=== PATIENT | male | born 1955 | race Caucasian/White ===

== ENCOUNTER 2023-06-19 14:02 | Emergency (ER) | payer MEDICARE, OTHER, SELFPAY ==
[2023-06-19 14:08] VITALS: BP 112/68
--- NOTE | 2023-06-19 14:55 | ED.SKININJ ---
HPI-Injury
General
Chief Complaint: Skin Surface Trauma
Source: patient
Exam Limitations: none
Time Seen by Provider: 06/19/23 14:33
Travel History
Have you had any contact with someone who has COVID-19?: No
Do you have any symptoms of coronavirus? Fever > 100 degrees, chills, cough, shortness of breath, sore throat, loss of taste or smell, muscle aches, or headache?: No
History of Present Illness-Injury
Initial Injury comments:
67-year-old male [id number] presents with laceration to left wrist he sustained today. He was opening a zip tie with a knife and slipped and cut his wrist. Last tetanus unknown. He denies numbness or tingling or loss of function. No
other complaints at this time
Past History
Past History
ED Past Medical History: Cancer (Oral/lung mets)
ED Past Surgical History: Other (Robotic lobectomy. Port.)
Social History
Tobacco: Non-smoker
Personal:
Living: with family
Phy Exam
Physical Exam
Physical Exam:
General: Well-appearing male no acute respiratory distress skin:
2.5 cm laceration radial aspect distal left wrist. There is no tendon involvement. There is no vascular involvement. There is a 2+ radial pulse left wrist with brisk capillary refill to the fingers
Musculoskeletal exam: Full range of motion left thumb and wrist
Neurologic: Good sensation left hand
Course
Orders/Labs/Results
Orders:
Orders
06/19/23 14:55
Tetanus/Diphth/Acelpertussis [Adacel] 0.5 ml IM .ONCE ONE
Vital Signs
Initial and Last Documented VS:
Initial Vital Signs
Temp Pulse Resp BP Pulse Ox
98.7 F 90 18 112/68 92
06/19/23 14:08 06/19/23 14:08 06/19/23 14:08 06/19/23 14:08 06/19/23 14:08
Last Documented Vital Signs
Temp Pulse Resp BP Pulse Ox
98.7 F 90 18 112/68 92
06/19/23 14:08 06/19/23 14:08 06/19/23 14:08 06/19/23 14:08 06/19/23 14:08
Procedures
Laceration Closure
Left Radial Wrist:
Status of Wound: clean
Description of Wound Edges: sharp
Preparation: cleaned with saline
Anesthesia: 1% Lidocaine
Revision/Debridement: routine- no revision
Wound exploration: explored to base- no FB and no tendon involvement
Type of Closure: single layer closure and interrupted sutures
Skin Closure Material: 5-0 prolene
Number of sutures: 5
MDM/Problems Addressed
Differential Diagnosis Includes:
Laceration left wrist without tendon or vascular involvement. This was copiously irrigated with saline and closed with 5-0 Prolene sutures. Tetanus vaccine updated. Dressing was applied. Discharged home with wound care instructions
*Critical Care Note
Total Time (30-74mins, 75-104mins- exclusive of procedures): Not Applicable
ED Attending Note
-
Portions of this chart may have been created with voice recognition software.� Occasional wrong word or��sound alike� substitutions may have occurred due to the inherent limitations of voice recognition software.
Discharge Plan
Departure
Patient Disposition: Home (Routine Discharge)
Date of Disposition: 06/19/23
Time of Disposition: 14:57
Patient with high blood pressure during this ER visit?: No
Discharge Problem:
Laceration
Instructions: Laceration Repair With Stitches (DC)
Prescriptions:
No Action
fluconazole 100 mg Tablet
100 mg PO DAILY
loperamide 2 mg Capsule
2 mg PO Q4H
ondansetron HCl 8 mg Tablet
8 mg PO Q8H PRN (Reason: nausea/vomiting)
levothyroxine 100 mcg Tablet
100 mcg PO DAILY
metoclopramide HCl 10 mg Tablet
10 mg PO ACHS
sucralfate 100 mg/mL Suspension
1 gm PO BID Qty: 600 0RF
pantoprazole [Protonix] 40 mg tablet,delayed release (DR/EC)
40 mg PO DAILY Qty: 30 0RF
Activity Restrictions/Additional Instructions:
Keep clean. Have sutures removed in 10 to 12 days. Return if needed otherwise follow-up with family doctor
Interventions
Interventions:
ED-Skin Assessment Last Done: 06/19/23 14:41
[2023-06-19] MEDS: ADACEL 0.5 ML IM (15:03)
[2023-06-19 15:22] VITALS: BP 109/63
[2023-06-19 15:25] VITALS: BP 109/63
== END 2023-06-19 15:25 | disposition home or self-care (01) ==
LOC: EMR 14:02
PROVIDERS: EMERGENCY PHYSICIAN Emergency Medicine; FAMILY PHYSICIAN Family Medicine
DX: S61.512A Laceration without foreign body of left wrist, initial encounter (principal); W45.8XXA Other foreign body or object entering through skin, initial encounter
CPT/HCPCS: 99282; 12001; 90471; 90715

== ENCOUNTER → 2023-07-22 11:20 | Outpatient (REF) | payer MEDICARE, OTHER, SELFPAY | LOC: RAD 11:20 | PROVIDERS: ATTENDING PHYSICIAN Nurse Practitioner Primary Care | DX: C01 Malignant neoplasm of base of tongue (principal) | CPT/HCPCS: 71046 ==

== ENCOUNTER 2023-11-13 06:46 | Day surgery (SDC) | payer MEDICARE, OTHER, SELFPAY ==
[2023-11-13] VITALS (8 sets, daily range): BP systolic 91–110; BP diastolic 59–73; BMI 22.5
[2023-11-13 17:10] LABS: Brochalveolar Lavage Character Hazy (Clear); Brochalveolar Lavage Color Pink; Brochalveolar Lavage Volume 17.5 ml; Brochalveolar Lavage WBC 47300 cells/ml
[2023-11-13 17:59] LABS: BAL Eosinophils 1 %; BAL Lymphocytes 4 %; BAL Macrophages 14 %; BAL Neutrophils 81 %
== END 2023-11-13 15:30 | disposition home or self-care (01) ==
LOC: GI 06:46
PROVIDERS: ATTENDING PHYSICIAN Internal Medicine Critical Care Medicine
DX: J84.9 Interstitial pulmonary disease, unspecified (principal); J13 Pneumonia due to Streptococcus pneumoniae
CPT/HCPCS: 31623; 31624; 87015; 87070; 87071; 87102; 87116; 87186; 87205; 88112; 89051

== ENCOUNTER → 2023-11-25 09:45 | Outpatient (REF) | payer MEDICARE, OTHER, SELFPAY | LOC: RST 09:45 | PROVIDERS: ATTENDING PHYSICIAN Internal Medicine Critical Care Medicine; FAMILY PHYSICIAN Family Medicine | DX: Z87.01 Personal history of pneumonia (recurrent) (principal); R13.10 Dysphagia, unspecified | CPT/HCPCS: 74230; 92611 ==

== ENCOUNTER 2023-12-31 10:12 | Outpatient (RCR) | payer MEDICARE, OTHER, SELFPAY | END 2023-12-31 23:59 | disposition home or self-care (01) | LOC: RST 10:12 | PROVIDERS: ATTENDING PHYSICIAN Family Medicine | DX: R13.12 Dysphagia, oropharyngeal phase (principal); Z87.01 Personal history of pneumonia (recurrent); Z85.810 Personal history of malignant neoplasm of tongue; C78.00 Secondary malignant neoplasm of unspecified lung | CPT/HCPCS: 92526; 92610 ==

== ENCOUNTER 2024-02-03 10:08 | Outpatient (RCR) | payer MEDICARE, OTHER, SELFPAY | END 2024-02-03 23:59 | disposition home or self-care (01) | LOC: RST 10:08 | PROVIDERS: ATTENDING PHYSICIAN Family Medicine | DX: R13.12 Dysphagia, oropharyngeal phase (principal); Z85.810 Personal history of malignant neoplasm of tongue; Z85.118 Personal history of other malignant neoplasm of bronchus and lung; Z87.01 Personal history of pneumonia (recurrent) | CPT/HCPCS: 92526 ==

== ENCOUNTER 2024-02-12 11:10 | Emergency (ER) | payer MEDICARE, OTHER, SELFPAY ==
[2024-02-12 11:12] VITALS: BP 111/75
--- NOTE | 2024-02-12 11:48 | ED.GENMED ---
History of Present Illness
General
Chief Complaint: Abnormal Lab Value
Time Seen by Provider: 02/12/24 11:27
History of Present Illness
History of Present Illness:
Patient is a 68-year-old male with history of cancer currently not on chemotherapy presenting to the emergency department with abnormal blood work. 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
And then spread to his chest in 2020 when he was on chemo. In October he had a PET scan that showed his cancer was in remission. His chemotherapy was stopped. It did show concerning signs for fungal pneumonia and he was seen by pulmonology and
treated. He did have routine blood work completed his primary care doctor and was called today for white count of 96. His primary care doctor told him to come to the emergency department for further evaluation. Patient states that this time he
has no medical complaints. He did have an episode of dizziness a few weeks ago and his primary care doctor did order an echo and ultrasound of his carotids. He states that he did feel dehydrated that day and has not had it again since then.
Past History
Past History
ED Past Medical History: Cancer (Oral/lung mets)
ED Past Surgical History: Other (Robotic lobectomy. Port.)
Social History
Tobacco: Non-smoker
Personal:
Living: with family
Phy Exam
Physical Exam
Physical Exam:
GENERAL: in no acute distress
HEENT: normocephalic, extraocular movements intact, moist oral mucosa
NECK: normal inspection
RESPIRATORY: no respiratory distress, clear to auscultation bilaterally
CARDIOVASCULAR: regular rate and rhythm
ABDOMEN/: soft, non-distended, non-tender to palpation, no rebound or guarding
EXTREMITIES: non-tender, no edema/swelling
NEUROLOGIC: awake and alert, moves all extremities
SKIN: warm
Course
Orders/Labs/Results
Orders:
Orders
02/12/24 12:04
Complete Blood Count/With Diff Urgent
Comprehensive Metabolic Panel Urgent
Manual Differential Urgent
Abnormal Lab Results
02/12/24
12:04
WBC 99.6 H* 10^3/uL
(4.8-10.8)
MCH 26.9 L pg
(27.0-31.0)
MCHC 32.8 L g/dL
(33.0-37.0)
RDW 18.3 H %
(11.5-14.5)
Plt Count 435 H 10^3/uL
(130-400)
02/12/24 12:04
02/12/24 12:04
Vital Signs
Initial and Last Documented VS:
Initial Vital Signs
Temp Pulse Resp BP Pulse Ox
98.3 F 110 16 111/75 98
02/12/24 11:12 02/12/24 11:12 02/12/24 11:12 02/12/24 11:12 02/12/24 11:12
Last Documented Vital Signs
Temp Pulse Resp BP Pulse Ox
98.3 F 110 16 111/75 98
02/12/24 11:12 02/12/24 11:12 02/12/24 11:12 02/12/24 11:12 02/12/24 11:12
MDM/Problems Addressed
Differential Diagnosis Includes:
Patient is a 68-year-old male with history of cancer that is currently in remission presenting to the emergency department with abnormal white count on outpatient blood work. Vitals are unremarkable exam is reassuring. Patient has no medical
complaints at this time. He does not appear to be septic or any signs of infection. He has been afebrile and denies any signs or symptoms to suggest an underlying infection. I did discuss with Dr. Ivey from oncology who recommended repeating
blood work and likely outpatient follow-up. I did discuss the possibility of hyperviscosity syndrome with the episode of dizziness last week with Dr. Ivey however at this time unlikely given that he has been asymptomatic and only occurred once
when he did feel dehydrated.
*Critical Care Note
Total Time (30-74mins, 75-104mins- exclusive of procedures): Not Applicable
Update Note
Update Note:
On reevaluation patient resting comfortably. He remains asymptomatic. I did receive a critical about patient's WBC of 99.6. Differential pending. Given the patient is is overall well-appearing and will follow-up with Dr. Ivey patient can be
discharged with differential pending. Strict return precaution given.
ED Attending Note
-
Portions of this chart may have been created with voice recognition software.� Occasional wrong word or��sound alike� substitutions may have occurred due to the inherent limitations of voice recognition software.
Discharge Plan
Departure
Discharge Problem:
Leukocytosis
Instructions: Complete blood count (CBC)
Prescriptions:
No Action
levothyroxine 100 mcg Tablet
125 mcg PO DAILY
capecitabine [Xeloda] 500 mg Tablet
500 mg PO BID
albuterol 90 mcg/actuation Aerosol
90 mcg INHALATION .Q4H PRN (Reason: cough)
Referrals:
Juan David Bennett, [Family Provider] -
Polo Ivey MD [Active] -
Activity Restrictions/Additional Instructions:
You were seen in the Emergency Department today. You are found to have a high white count. Please call your oncologist to schedule an outpatient appointment.
We would like for you to follow up with your primary care physician for further evaluation. If you experience fever, worsening of your symptoms, or develop any other new or concerning symptoms, please return to the Emergency Department immediately.
Please see the attached sheet for additional information.
Interventions
Interventions:
*Risk Screen - Suicide Last Done: 02/12/24 11:12
*Neglect/Abuse Screening Last Done: 02/12/24 11:12
Discharge Date and Time
Print Language: PERUVIAN
[2024-02-12 12:14] LABS: Hematocrit 40.3 % (39.0-52.0); Hemoglobin 13.2 g/dL (13.0-18.0); Mean Corp Hgb Conc. 32.8 g/dL (33.0-37.0); Mean Corpuscular Hgb 26.9 pg (27.0-31.0); Mean Corpuscular Volume 82.2 fL (80.0-94.0); Mean Platelet Volume 9.6 fL (7.4-10.4); Platelet Count 435 10^3/uL (130-400); Red Cell Dist. Width 18.3 % (11.5-14.5); White Blood Cell Count 99.6 10^3/uL (4.8-10.8)
[2024-02-12 12:24] LABS: ALT (SGPT) 30 U/L (0-50); AST (SGOT) 36 U/L (17-59); Albumin 4.2 g/dl (3.5-5.0); Alkaline Phosphatase 85 U/L (38-126); Blood Urea Nitrogen 12 mg/dl (9-20); Calcium 9.4 mg/dl (8.4-10.2); Carbon Dioxide 26 mmol/L (22-30); Chloride 100 mmol/L (98-107); Glucose 96 mg/dl (70-99); Potassium 4.4 mmol/L (3.5-5.1); Sodium 136 mmol/L (135-145); Total Bilirubin 0.7 mg/dl (0.2-1.3); Total Protein 7.2 g/dl (6.3-8.2); eGFR > 60.00
[2024-02-12 12:57] LABS: Absolute Neutrophils -Man Diff 72.7 10^3/uL (1.4-6.5); Band Neutrophils 10 % (0-3); Eosinophils 1 % (0-6); Lymphocytes 2 % (20-51); Metamyelocytes 14 % (-); Monocytes 4 % (2-9); Myelocytes 5 % (-); Normal RBC Morphology Yes; Platelets Checked Yes; Segmented Neutrophils 63 % (42-75); Total Cells Counted 100
[2024-02-12 13:00] VITALS: BP 112/74
== END 2024-02-12 13:00 | disposition home or self-care (01) ==
LOC: EMR 11:10
PROVIDERS: EMERGENCY PHYSICIAN Student in an Organized Health Care Education/Training Program; FAMILY PHYSICIAN Family Medicine
DX: D72.829 Elevated white blood cell count, unspecified (principal); Z85.118 Personal history of other malignant neoplasm of bronchus and lung; Z85.89 Personal history of malignant neoplasm of other organs and systems; Z90.2 Acquired absence of lung [part of]
CPT/HCPCS: 99283; 80053; 85025

== ENCOUNTER → 2024-02-19 11:41 | Outpatient (REF) | payer MEDICARE, OTHER, SELFPAY ==
[2024-02-19 13:29] LABS: Hemoglobin 13.7 g/dL (13.0-18.0); Mean Corp Hgb Conc. 31.9 g/dL (33.0-37.0); Mean Corpuscular Hgb 26.7 pg (27.0-31.0); Mean Corpuscular Volume 83.8 fL (80.0-94.0); Mean Platelet Volume 9.3 fL (7.4-10.4); Platelet Count 436 10^3/uL (130-400); Red Blood Cell Count 5.13 10^6/uL (4.70-6.10); Red Cell Dist. Width 18.1 % (11.5-14.5); White Blood Cell Count 103.4 10^3/uL (4.8-10.8)
[2024-02-19 13:52] LABS: Absolute Neutrophils -Man Diff 69.2 10^3/uL (1.4-6.5); Band Neutrophils 8 % (0-3); Lymphocytes 4 % (20-51); Monocytes 4 % (2-9); Segmented Neutrophils 59 % (42-75)
[2024-02-19 13:53] LABS: Metamyelocytes 10 % (-); Myelocytes 15 % (-); Normal RBC Morphology Yes; Platelets Checked Yes; Total Cells Counted 100
[2024-02-19 14:14] LABS: ALT (SGPT) 27 U/L (0-50); AST (SGOT) 38 U/L (17-59); Albumin 4.4 g/dl (3.5-5.0); Alkaline Phosphatase 85 U/L (38-126); Blood Urea Nitrogen 14 mg/dl (9-20); Carbon Dioxide 28 mmol/L (22-30); Chloride 100 mmol/L (98-107); Glucose 68 mg/dl (70-99); Phosphorus 3.6 mg/dl (2.5-4.5); Potassium 4.8 mmol/L (3.5-5.1); Sodium 140 mmol/L (135-145); Total Bilirubin 0.7 mg/dl (0.2-1.3); Total Protein 7.6 g/dl (6.3-8.2); eGFR > 60.00
[2024-02-19 14:30] LABS: LDH 615 U/L (120-246)
[2024-02-19 14:47] LABS: Uric Acid 8.4 mg/dl (3.5-8.5)
== END ==
LOC: REG 11:41
PROVIDERS: ATTENDING PHYSICIAN Internal Medicine Hematology & Oncology; FAMILY PHYSICIAN Family Medicine
DX: C01 Malignant neoplasm of base of tongue (principal); G64 Other disorders of peripheral nervous system; R05.3 Chronic cough
CPT/HCPCS: 36415; 80053; 83615; 84100; 84550; 85025

== ENCOUNTER → 2024-02-28 08:28 | Outpatient (REF) | payer MEDICARE, OTHER, SELFPAY | LOC: MRI 3T 08:28 | PROVIDERS: ATTENDING PHYSICIAN Family Medicine | DX: C09.9 Malignant neoplasm of tonsil, unspecified (principal); R42 Dizziness and giddiness; R53.83 Other fatigue | CPT/HCPCS: 70030; 70553; A9575 ==

== ENCOUNTER → 2024-03-02 12:44 | Outpatient (REF) | payer MEDICARE, OTHER, SELFPAY | LOC: HWRCS 12:44 | PROVIDERS: ATTENDING PHYSICIAN Family Medicine | DX: R01.1 Cardiac murmur, unspecified (principal) | CPT/HCPCS: 93306 ==

== ENCOUNTER → 2024-03-03 07:03 | Outpatient (REF) | payer MEDICARE, OTHER, SELFPAY ==
[2024-03-03] VITALS (8 sets, daily range): BP systolic 71–116; BP diastolic 65–79
[2024-03-03 07:35] LABS: Hematocrit 45.4 % (39.0-52.0); Mean Corp Hgb Conc. 30.8 g/dL (33.0-37.0); Mean Corpuscular Hgb 27.2 pg (27.0-31.0); Mean Corpuscular Volume 88.3 fL (80.0-94.0); Mean Platelet Volume 9.4 fL (7.4-10.4); Platelet Count 517 10^3/uL (130-400); Red Blood Cell Count 5.14 10^6/uL (4.70-6.10); Red Cell Dist. Width 18.2 % (11.5-14.5)
[2024-03-03 07:37] LABS: White Blood Cell Count 120.3 10^3/uL (4.8-10.8)
[2024-03-03 07:54] LABS: PT 14.5 Sec (11.4-14.6)
[2024-03-03] MEDS: ATIVAN 0.5 MG IV (08:06)
[2024-03-03] MEDS: FLUSH (NSS) 1 FLUSH IV (08:07)
[2024-03-03] MEDS: NSS (PRESERVATIVE FREE) 0.25 ML IV (08:07)
[2024-03-03 08:09] LABS: Absolute Neutrophils -Man Diff 75.7 10^3/uL (1.4-6.5); Band Neutrophils 15 % (0-3); Lymphocytes 10 % (20-51); Metamyelocytes 2 % (-); Monocytes 5 % (2-9); Myelocytes 19 % (-); Normal RBC Morphology Yes; Nucleated Red Blood Cells 1 (-); Platelets Checked Yes; Segmented Neutrophils 48 % (42-75); Total Cells Counted 100
== END ==
LOC: RADI 07:03
PROVIDERS: ATTENDING PHYSICIAN Internal Medicine Hematology & Oncology
DX: D72.829 Elevated white blood cell count, unspecified (principal); D68.8 Other specified coagulation defects
CPT/HCPCS: 88305; 88311; 88312; 36415; 38222; 77012; 85025; 85610; 88313

== ENCOUNTER → 2024-03-07 07:25 | Outpatient (REF) | payer MEDICARE, OTHER, SELFPAY | LOC: RAD 07:25 | PROVIDERS: ATTENDING PHYSICIAN Family Medicine; OTHER PHYSICIAN Internal Medicine Critical Care Medicine; REFERRING PHYSICIAN Internal Medicine Hematology & Oncology | DX: C09.9 Malignant neoplasm of tonsil, unspecified (principal); R42 Dizziness and giddiness; R01.1 Cardiac murmur, unspecified; R09.89 Other specified symptoms and signs involving the circulatory and respiratory systems | CPT/HCPCS: 93880 ==

== ENCOUNTER → 2024-04-03 16:03 | Outpatient (REF) | payer MEDICARE, OTHER, SELFPAY | LOC: RAD 16:03 | PROVIDERS: ATTENDING PHYSICIAN Family Medicine; FAMILY PHYSICIAN Internal Medicine Critical Care Medicine | DX: R05.3 Chronic cough (principal); R06.02 Shortness of breath | CPT/HCPCS: 71046 ==

== ENCOUNTER → 2024-04-27 10:03 | Outpatient (REF) | payer MEDICARE, OTHER, SELFPAY ==
[2024-04-27 11:02] LABS: % Basophils 0.4 % (0-2); % Eosinophils 0.6 % (0-6); % Immature Granulocytes 0.8 % (0-0.5); % Lymphocytes 20.8 % (20.5-51.1); % Monocytes 6.8 % (1.7-9.3); % Neutrophils 70.6 % (42.2-75.2); Absolute Lymphocytes 1.1 10^3/uL (1.2-3.4); Absolute Monocytes 0.4 10^3/uL (0.1-0.6); Absolute Neutrophils 3.7 10^3/uL (1.4-6.5); Hematocrit 42.9 % (39.0-52.0); Hemoglobin 13.6 g/dL (13.0-18.0); Mean Corp Hgb Conc. 31.7 g/dL (33.0-37.0); Mean Corpuscular Volume 88.5 fL (80.0-94.0); Nucleated Red Blood Cells % 0 % (-); Red Blood Cell Count 4.85 10^6/uL (4.70-6.10); Red Cell Dist. Width 18.4 % (11.5-14.5); White Blood Cell Count 5.3 10^3/uL (4.8-10.8)
[2024-04-27 11:28] LABS: ALT (SGPT) 36 U/L (0-50); AST (SGOT) 27 U/L (17-59); Alkaline Phosphatase 87 U/L (38-126); Blood Urea Nitrogen 13 mg/dl (9-20); Calcium 9.1 mg/dl (8.4-10.2); Carbon Dioxide 29 mmol/L (22-30); Chloride 100 mmol/L (98-107); Glucose 111 mg/dl (70-99); Mean Platelet Volume 9.2 fL (7.4-10.4); Platelet Count 70 10^3/uL (130-400); Sodium 136 mmol/L (135-145); Total Bilirubin 0.8 mg/dl (0.2-1.3); eGFR > 60.00
== END ==
LOC: REG 10:03
PROVIDERS: ATTENDING PHYSICIAN Internal Medicine Hematology & Oncology; FAMILY PHYSICIAN Family Medicine
DX: C01 Malignant neoplasm of base of tongue (principal); G64 Other disorders of peripheral nervous system; R05.3 Chronic cough; D72.829 Elevated white blood cell count, unspecified; C92.10 Chronic myeloid leukemia, BCR/ABL-positive, not having achieved remission
CPT/HCPCS: 36415; 80053; 85025

== ENCOUNTER → 2024-05-14 12:11 | Outpatient (REF) | payer MEDICARE, OTHER, SELFPAY | LOC: HWRAD 12:11 | PROVIDERS: ATTENDING PHYSICIAN Nurse Practitioner Family | DX: R05.9 Cough, unspecified (principal); J98.4 Other disorders of lung | CPT/HCPCS: 71250 ==

== ENCOUNTER → 2024-05-18 07:08 | Outpatient (REF) | payer MEDICARE, OTHER, SELFPAY ==
[2024-05-18 08:20] LABS: % Basophils 0.3 % (0-2); % Eosinophils 0.2 % (0-6); % Immature Granulocytes 0.8 % (0-0.5); % Lymphocytes 27.4 % (20.5-51.1); % Monocytes 7.7 % (1.7-9.3); % Neutrophils 63.6 % (42.2-75.2); Absolute Immature Granulocytes 0.1 10^3/uL (0-0.05); Absolute Lymphocytes 1.8 10^3/uL (1.2-3.4); Absolute Monocytes 0.5 10^3/uL (0.1-0.6); Absolute Neutrophils 4.2 10^3/uL (1.4-6.5); Hematocrit 41.7 % (39.0-52.0); Hemoglobin 13.2 g/dL (13.0-18.0); Mean Corp Hgb Conc. 31.7 g/dL (33.0-37.0); Mean Corpuscular Hgb 28.2 pg (27.0-31.0); Mean Corpuscular Volume 89.1 fL (80.0-94.0); Mean Platelet Volume 9.2 fL (7.4-10.4); Nucleated Red Blood Cells % 0 % (-); Platelet Count 235 10^3/uL (130-400); Red Blood Cell Count 4.68 10^6/uL (4.70-6.10); White Blood Cell Count 6.6 10^3/uL (4.8-10.8)
[2024-05-18 08:46] LABS: ALT (SGPT) 40 U/L (0-50); AST (SGOT) 25 U/L (17-59); Albumin 3.1 g/dl (3.5-5.0); Alkaline Phosphatase 106 U/L (38-126); Blood Urea Nitrogen 16 mg/dl (9-20); Calcium 8.6 mg/dl (8.4-10.2); Carbon Dioxide 30 mmol/L (22-30); Chloride 104 mmol/L (98-107); Glucose 102 mg/dl (70-99); Potassium 4.3 mmol/L (3.5-5.1); Sodium 137 mmol/L (135-145); Total Bilirubin 0.6 mg/dl (0.2-1.3); Total Protein 6.6 g/dl (6.3-8.2); eGFR > 60.00
== END ==
LOC: REG 07:08
PROVIDERS: ATTENDING PHYSICIAN Internal Medicine Hematology & Oncology; FAMILY PHYSICIAN Family Medicine; REFERRING PHYSICIAN Internal Medicine Critical Care Medicine
DX: C01 Malignant neoplasm of base of tongue (principal); G64 Other disorders of peripheral nervous system; R05.3 Chronic cough; D72.829 Elevated white blood cell count, unspecified; C92.10 Chronic myeloid leukemia, BCR/ABL-positive, not having achieved remission
CPT/HCPCS: 36415; 80053; 85025

== ENCOUNTER → 2024-06-01 07:02 | Outpatient (REF) | payer MEDICARE, OTHER, SELFPAY ==
[2024-06-01 08:28] LABS: % Basophils 0.6 % (0-2); % Eosinophils 0.6 % (0-6); % Immature Granulocytes 0.3 % (0-0.5); % Monocytes 10.8 % (1.7-9.3); % Neutrophils 60.7 % (42.2-75.2); Absolute Lymphocytes 1.7 10^3/uL (1.2-3.4); Absolute Monocytes 0.7 10^3/uL (0.1-0.6); Absolute Neutrophils 3.8 10^3/uL (1.4-6.5); Hematocrit 43.3 % (39.0-52.0); Hemoglobin 13.7 g/dL (13.0-18.0); Mean Corp Hgb Conc. 31.6 g/dL (33.0-37.0); Mean Corpuscular Hgb 28.7 pg (27.0-31.0); Mean Corpuscular Volume 90.8 fL (80.0-94.0); Nucleated Red Blood Cells % 0 % (-); Red Blood Cell Count 4.77 10^6/uL (4.70-6.10); Red Cell Dist. Width 17.2 % (11.5-14.5); White Blood Cell Count 6.3 10^3/uL (4.8-10.8)
[2024-06-01 08:56] LABS: ALT (SGPT) 24 U/L (0-50); AST (SGOT) 22 U/L (17-59); Albumin 3.6 g/dl (3.5-5.0); Alkaline Phosphatase 83 U/L (38-126); Blood Urea Nitrogen 12 mg/dl (9-20); Calcium 8.9 mg/dl (8.4-10.2); Carbon Dioxide 28 mmol/L (22-30); Chloride 102 mmol/L (98-107); Glucose 102 mg/dl (70-99); Potassium 5.1 mmol/L (3.5-5.1); Sodium 136 mmol/L (135-145); Total Protein 6.6 g/dl (6.3-8.2); eGFR > 60.00
[2024-06-01 09:26] LABS: Mean Platelet Volume 9.7 fL (7.4-10.4); Platelet Count 99 10^3/uL (130-400)
== END ==
LOC: REG 07:02
PROVIDERS: ATTENDING PHYSICIAN Internal Medicine Hematology & Oncology; FAMILY PHYSICIAN Family Medicine; REFERRING PHYSICIAN Internal Medicine Critical Care Medicine
DX: C01 Malignant neoplasm of base of tongue (principal); G64 Other disorders of peripheral nervous system; R05.3 Chronic cough; D72.829 Elevated white blood cell count, unspecified; C92.10 Chronic myeloid leukemia, BCR/ABL-positive, not having achieved remission
CPT/HCPCS: 36415; 80053; 85025

== ENCOUNTER → 2024-08-03 10:08 | Outpatient (REF) | payer MEDICARE, OTHER, SELFPAY ==
[2024-08-03 11:06] LABS: % Basophils 0.5 % (0-2); % Eosinophils 3.8 % (0-6); % Immature Granulocytes 0.3 % (0-0.5); % Lymphocytes 30.4 % (20.5-51.1); % Monocytes 12.3 % (1.7-9.3); % Neutrophils 52.7 % (42.2-75.2); Absolute Eosinophils 0.2 10^3/uL (0-0.7); Absolute Lymphocytes 1.8 10^3/uL (1.2-3.4); Absolute Monocytes 0.7 10^3/uL (0.1-0.6); Absolute Neutrophils 3.2 10^3/uL (1.4-6.5); Hematocrit 43.2 % (39.0-52.0); Hemoglobin 14.1 g/dL (13.0-18.0); Mean Corp Hgb Conc. 32.6 g/dL (33.0-37.0); Mean Corpuscular Hgb 29.9 pg (27.0-31.0); Mean Corpuscular Volume 91.7 fL (80.0-94.0); Mean Platelet Volume 9.9 fL (7.4-10.4); Nucleated Red Blood Cells % 0 % (-); Platelet Count 119 10^3/uL (130-400); Red Blood Cell Count 4.71 10^6/uL (4.70-6.10); Red Cell Dist. Width 14.6 % (11.5-14.5)
== END ==
LOC: REG 10:08
PROVIDERS: ATTENDING PHYSICIAN Internal Medicine Hematology & Oncology; FAMILY PHYSICIAN Family Medicine
DX: C01 Malignant neoplasm of base of tongue (principal); G64 Other disorders of peripheral nervous system; R05.3 Chronic cough; D72.829 Elevated white blood cell count, unspecified; C92.10 Chronic myeloid leukemia, BCR/ABL-positive, not having achieved remission
CPT/HCPCS: 36415; 85025

== ENCOUNTER → 2024-09-17 07:30 | Outpatient (REF) | payer MEDICARE, OTHER, SELFPAY | LOC: RAD 07:30 | PROVIDERS: ATTENDING PHYSICIAN Internal Medicine Hematology & Oncology; FAMILY PHYSICIAN Family Medicine | DX: C01 Malignant neoplasm of base of tongue (principal) | CPT/HCPCS: 71260; 74177; Q9967 ==

== ENCOUNTER 2025-01-18 22:33 | Inpatient (IN) | payer MEDICARE, OTHER, SELFPAY ==
[2025-01-18 17:38] VITALS: BP 123/68
--- NOTE | 2025-01-18 19:23 | ED.GENMED ---
History of Present Illness
<Brenda Pineda PA-C - Last Filed: 01/19/25 03:34>
General
Chief Complaint: Pneumonia Symptoms
Source: patient
Exam Limitations: none
Time Seen by Provider: 01/18/25 19:10
Nursing documentation reviewed up to this point in time: agreed with
History of Present Illness
History of Present Illness:
Patient is a 69-year-old male with history of lung CA, leukemia who presents to the emergency department for evaluation of fever and cough X 1 week. Patient states that approximate 10 days ago his granddaughter 'vomited on him' a few times while he
was babysitting. He states that last Saturday he started with viral URI symptoms including intermittent fever, productive cough, rhinorrhea. He states cough has gotten progressively worse and he developed 'shaking chills' earlier today. He also
reports feeling short of breath even at rest. He denies any nausea, vomiting, or abdominal pain. No dysuria or other urinary symptoms. No diarrhea or patient.
Patient apparently has a history of pneumonia and given persistent symptoms - he came to the emergency department for evaluation.
Past History
<Brenda Pineda PA-C - Last Filed: 01/19/25 03:34>
Past History
ED Past Medical History: Cancer (Oral/lung mets)
ED Past Surgical History: Other (Robotic lobectomy. Port.)
Social History
Tobacco: Non-smoker
Personal:
Living: with family
Review of Systems
<Brenda Pineda PA-C - Last Filed: 01/19/25 03:34>
Review of Systems
Allergies reviewed?: Yes
All Other Systems: ROS reviewed and negative except as documented in HPI and ROS
Phy Exam
<Brenda Pineda PA-C - Last Filed: 01/19/25 03:34>
Physical Exam
Physical Exam:
Vitals: Hypoxic, tachycardic, tachypneic. Febrile to 100.5 F
General: Patient is significantly tachypneic with shaking chills
Skin: Warm and dry, no rashes or lesions
Head: Normocephalic, atraumatic
Eyes: Sclera nonicteric. EOMs intact. No nystagmus.
Throat: Protecting airway
Neck: Normal ROM, no cervical spine tenderness, no meningismus
Cardiac: Tachycardic, normal rhythm, no murmurs.
Pulm: Hypoxic to 88% on room air, tachypneic with increased respiratory effort. Decreased breath sounds bilaterally with rails. No wheeze
Abdomen: Abdomen soft and nontender.
Extremities: No evidence of cyanosis or edema. 2+ palpable DP pulses bilaterally
Neuro: AAOx3. Grossly intact.
Psychiatric: Normal affect.
Course
<Brenda Pineda PA-C - Last Filed: 01/19/25 03:34>
Orders/Labs/Results
Orders:
Orders
01/18/25 17:43
Electrocardiogram (*1) Urgent
Reason for Study: Shortness of Breath
EKG- Treatment ONCE
01/18/25 19:20
Acetaminophen [Tylenol] 650 mg PO NOW STA
01/18/25 19:21
0.9% Sodium Chloride 1000 ml [Nss] 1,000 ml IV BOLUS
01/18/25 19:31
Basic Metabolic Panel Urgent
COVID-19 Antigen Urgent
Source: Nasal Swab
Complete Blood Count/With Diff Urgent
Lactic Acid Q4H
Comment: CANCEL 2nd LACTIC ACID IF 1st LACTIC ACID IS LESS THAN 2
Blood Culture Q30M
LACY Source: Blood/Venous
Specimen Description:
Blood Culture Q30M
LACY Source: Blood/Venous
Specimen Description:
Influenza A+B Rapid Molecular Urgent
LACY Source: Nasal Swab
Specimen Description:
01/18/25 19:40
Ipratropium/Albuterol Sulfate [Duoneb] 3 ml INH R NOW STA
CR Chest Portable - 1 View Urgent
Comment:
Reason For Exam: SOB, hypoxia, cough
Reason Study Needs to be Portable: Patient Unstable
01/18/25 21:18
NT-proBNP Urgent
Troponin I Urgent
01/18/25 21:30
LevoFLOXacin 750 MG/150 ML [Levaquin] 750 mg in 150 ml IV NOW
01/18/25 22:11
Admit/Transfer Patient As Directed
Co-Sign Provider:
Level of Care: Inpatient admission
Assign to:: Medical/Surgical
Physician / Group: Danial
Diagnosis: Pneumonia
Reason for Hospitalization: sepsis
Expected length of stay greater than two midnights?: Yes
ELOS- Estimated Length of Stay in days: 2
I certify the patient meets the requirements for IP care: Yes
PRN Pain Medication Management As Directed
May give lesser potent ordered pain med per pt: Yes
preference::
Protocol:: Medication orders for pain may be administered in a
manner that supports deferring to patient preference
when the pt is:
- Requesting an ordered lesser potent pain medication.
Least to most potent pain medications are defined
as: acetaminophen < NSAID < tramadol < opioids
(morphine, oxycodone, hydromorphone).
- Requesting a lesser dose of the same medication IF
ORDERED.
- Requesting a less intrusive route of administration
if both routes are prescribed by the provider (PO <
IV).
01/18/25 22:12
Code Status As Directed
Resuscitation Status: Full Code
01/18/25 23:30
Lactic Acid Q4H
Comment: CANCEL 2nd LACTIC ACID IF 1st LACTIC ACID IS LESS THAN 2
01/19/25 00:46
Acetaminophen [Tylenol] 650 mg PO Q4HPRN PRN
Ipratropium/Albuterol Sulfate [Duoneb] 3 ml INH R Q4HPRN PRN
01/19/25 00:46
Consult Notification Routine
Specialty to Notify: Pulmonary
PULMONARY CONSULT Routine
Consulting Provider: Mireya Rea
Was physician already notified: No
Reason for consult: h/o ILD, here w/ atypical pneumonia, hypoxia, sepsis
Legionella Urinary Antigen Routine
LACY Source: Urine
Specimen Description:
Respiratory Culture/Gram Stain Urgent
LACY Source: Sputum
Specimen Description:
Strep pneumoniae Antigen Routine
LACY Source: Urine
Specimen Description:
Activity As Directed
Activity Level: Out of Bed-Early Mobility
Intake/ Output As Directed
Frequency: Per unit guidelines
Vital Signs As Directed
Frequency: Per unit guidelines
Weight As Directed
Frequency: Once
Comment: on admission
O2 Therapy [RESP] Routine
Nasal Cannula Liter Flow: 2 LPM
Titrate/Wean O2 to maintain O2 sat greater than (%): 93
Special Instructions: Wean as tolerated
Pulse Ox/cont/shift [RESP] Routine
Quantity: 1
Special Instructions: notify provider if SPO2 < 91%
Rx Incentive Spirometry [RESP] Routine
Frequency: q1h while awake
Pt Eval And Treat Routine
Activity Level: With Assistance
DX Deep Vein Thrombosis Video Routine
01/19/25 Breakfast
Regular
Basic Metabolic Panel IN AM
Complete Blood Count/No Diff IN AM
Levothyroxine [Synthroid] 125 mcg PO DAILY @ 0600
01/19/25 08:00
nilotinib HCl [Tasigna] 300 mg PO BID
01/19/25 18:00
Enoxaparin Sodium [Lovenox] 40 mg SC QPM
01/19/25 22:00
LevoFLOXacin 750 MG/150 ML [Levaquin] 750 mg in 150 ml IV Q24H
Abnormal Lab Results
01/18/25
19:31
MCHC 32.4 L g/dL
(33.0-37.0)
Plt Count 117 L 10^3/uL
(130-400)
Absolute Neuts (auto) 6.6 H 10^3/uL
(1.4-6.5)
Absolute Monos (auto) 1.0 H 10^3/uL
(0.1-0.6)
Monocytes % 9.5 H %
(1.7-9.3)
Sodium 134 L mmol/L
(135-145)
Glucose 119 H mg/dl
(70-99)
Lactic Acid 2.2 H mmol/L
(0.7-2.0)
01/18/25 19:31
01/18/25 19:31
Vital Signs
Initial and Last Documented VS:
Initial Vital Signs
Temp Pulse Resp BP Pulse Ox
97.7 F 81 20 123/68 96
01/18/25 17:38 01/18/25 17:38 01/18/25 17:38 01/18/25 17:38 01/18/25 17:38
Last Documented Vital Signs
Temp Pulse Resp BP Pulse Ox
98.6 F 81 18 122/68 88
01/19/25 00:43 01/19/25 00:43 01/19/25 00:43 01/19/25 00:43 01/19/25 01:06
<Juan David Lange MD - Last Filed: 01/18/25 21:54>
Orders/Labs/Results
Orders:
Orders
01/18/25 17:43
Electrocardiogram (*1) Urgent
Reason for Study: Shortness of Breath
EKG- Treatment ONCE
01/18/25 19:20
Acetaminophen [Tylenol] 650 mg PO NOW STA
01/18/25 19:21
0.9% Sodium Chloride 1000 ml [Nss] 1,000 ml IV BOLUS
01/18/25 19:31
Basic Metabolic Panel Urgent
COVID-19 Antigen Urgent
Source: Nasal Swab
Complete Blood Count/With Diff Urgent
Lactic Acid Q4H
Comment: CANCEL 2nd LACTIC ACID IF 1st LACTIC ACID IS LESS THAN 2
Blood Culture Q30M
LACY Source: Blood/Venous
Specimen Description:
Blood Culture Q30M
LACY Source: Blood/Venous
Specimen Description:
Influenza A+B Rapid Molecular Urgent
LACY Source: Nasal Swab
Specimen Description:
01/18/25 19:40
Ipratropium/Albuterol Sulfate [Duoneb] 3 ml INH R NOW STA
CR Chest Portable - 1 View Urgent
Comment:
Reason For Exam: SOB, hypoxia, cough
Reason Study Needs to be Portable: Patient Unstable
01/18/25 21:18
NT-proBNP Urgent
Troponin I Urgent
01/18/25 21:30
LevoFLOXacin 750 MG/150 ML [Levaquin] 750 mg in 150 ml IV NOW
01/18/25 22:11
Admit/Transfer Patient As Directed
Co-Sign Provider:
Level of Care: Inpatient admission
Assign to:: Medical/Surgical
Physician / Group: Danial
Diagnosis: Pneumonia
Reason for Hospitalization: sepsis
Expected length of stay greater than two midnights?: Yes
ELOS- Estimated Length of Stay in days: 2
I certify the patient meets the requirements for IP care: Yes
PRN Pain Medication Management As Directed
May give lesser potent ordered pain med per pt: Yes
preference::
Protocol:: Medication orders for pain may be administered in a
manner that supports deferring to patient preference
when the pt is:
- Requesting an ordered lesser potent pain medication.
Least to most potent pain medications are defined
as: acetaminophen < NSAID < tramadol < opioids
(morphine, oxycodone, hydromorphone).
- Requesting a lesser dose of the same medication IF
ORDERED.
- Requesting a less intrusive route of administration
if both routes are prescribed by the provider (PO <
IV).
01/18/25 22:12
Code Status As Directed
Resuscitation Status: Full Code
01/18/25 23:30
Lactic Acid Q4H
Comment: CANCEL 2nd LACTIC ACID IF 1st LACTIC ACID IS LESS THAN 2
01/19/25 00:46
Acetaminophen [Tylenol] 650 mg PO Q4HPRN PRN
Ipratropium/Albuterol Sulfate [Duoneb] 3 ml INH R Q4HPRN PRN
01/19/25 00:46
Consult Notification Routine
Specialty to Notify: Pulmonary
PULMONARY CONSULT Routine
Consulting Provider: Mireya Rea
Was physician already notified: No
Reason for consult: h/o ILD, here w/ atypical pneumonia, hypoxia, sepsis
Legionella Urinary Antigen Routine
LACY Source: Urine
Specimen Description:
Respiratory Culture/Gram Stain Urgent
LACY Source: Sputum
Specimen Description:
Strep pneumoniae Antigen Routine
LACY Source: Urine
Specimen Description:
Activity As Directed
Activity Level: Out of Bed-Early Mobility
Intake/ Output As Directed
Frequency: Per unit guidelines
Vital Signs As Directed
Frequency: Per unit guidelines
Weight As Directed
Frequency: Once
Comment: on admission
O2 Therapy [RESP] Routine
Nasal Cannula Liter Flow: 2 LPM
Titrate/Wean O2 to maintain O2 sat greater than (%): 93
Special Instructions: Wean as tolerated
Pulse Ox/cont/shift [RESP] Routine
Quantity: 1
Special Instructions: notify provider if SPO2 < 91%
Rx Incentive Spirometry [RESP] Routine
Frequency: q1h while awake
Pt Eval And Treat Routine
Activity Level: With Assistance
DX Deep Vein Thrombosis Video Routine
01/19/25 Breakfast
Regular
Basic Metabolic Panel IN AM
Complete Blood Count/No Diff IN AM
Levothyroxine [Synthroid] 125 mcg PO DAILY @ 0600
01/19/25 08:00
nilotinib HCl [Tasigna] 300 mg PO BID
01/19/25 18:00
Enoxaparin Sodium [Lovenox] 40 mg SC QPM
01/19/25 22:00
LevoFLOXacin 750 MG/150 ML [Levaquin] 750 mg in 150 ml IV Q24H
Abnormal Lab Results
01/18/25
19:31
MCHC 32.4 L g/dL
(33.0-37.0)
Plt Count 117 L 10^3/uL
(130-400)
Absolute Neuts (auto) 6.6 H 10^3/uL
(1.4-6.5)
Absolute Monos (auto) 1.0 H 10^3/uL
(0.1-0.6)
Monocytes % 9.5 H %
(1.7-9.3)
Sodium 134 L mmol/L
(135-145)
Glucose 119 H mg/dl
(70-99)
Lactic Acid 2.2 H mmol/L
(0.7-2.0)
01/18/25 19:31
01/18/25 19:31
Vital Signs
Initial and Last Documented VS:
Initial Vital Signs
Temp Pulse Resp BP Pulse Ox
97.7 F 81 20 123/68 96
01/18/25 17:38 01/18/25 17:38 01/18/25 17:38 01/18/25 17:38 01/18/25 17:38
Last Documented Vital Signs
Temp Pulse Resp BP Pulse Ox
98.6 F 81 18 122/68 88
01/19/25 00:43 01/19/25 00:43 01/19/25 00:43 01/19/25 00:43 01/19/25 01:06
<Brenda Pineda PA-C - Last Filed: 01/19/25 03:34>
MDM/Problems Addressed
Differential Diagnosis Includes:
Not limited to: Sepsis, pneumonia, bronchitis, viral illness, CHF exacerbation, etc.
MDM/Problems Addressed:
69-year-old male presents with 7 days of fever, cough, and rhinorrhea. He reports that his granddaughter was recently ill approximately 10 days ago. On arrival, he was tachycardic, tachypneic, febrile, and hypoxic to 89% on room air.
On exam, he has decreased breath sounds bilaterally with rales, without wheezing. Abdomen is soft, non-tender, and benign.
Given his presentation, there is high clinical suspicion for an infectious etiology, most likely pneumonia. Septic workup was initiated. CBC is unremarkable. Lactic acid is mildly elevated at 2.2. Chest X-ray shows findings concerning for mild
pulmonary edema versus developing pneumonia. Viral panel is negative. Given chest X-ray findings, proBNP and troponin were obtained and were within normal limits, making a primary cardiac process less likely.
Based on clinical findings�fever, hypoxia, respiratory symptoms, and abnormal lung exam�infectious process is the most likely. He remained normotensive during his ED stay. Due to his PCN allergy, he was started on Levaquin, safe given his normal QTc
on today's ECG.
Patient requires hospital admission for IV antibiotics, oxygen support, and continued monitoring. He was accepted by the hospitalist service in stable condition for further inpatient management.
Chronic conditions affecting care:
History of lung CA, leukemia
Acute Exacerbation and/or Progression of Chronic Illness:
N/A
<Brenda Pineda PA-C - Last Filed: 01/19/25 03:34>
*Radiology
Radiology exam reviewed: radiology read reviewed
*Pulse Oximetry
SaO2: 88
Oxygen Mode of Delivery: Room air
Patient hypoxic: yes
*EKG
Interpreted by ED Provider?: Yes
Interpretation: normal
Comparison EKG: changes noted
Heart Rate: 72
Rate: normal
Rhythm: sinus
[place]: normal axis
Interval: normal QT interval
QRS Pattern: normal QRS
Ischemia: no ischemia
*[employer] Interpretation
Rate: tachycardiac
Interpretation: abnormal
Heart Rate: 113
Rhythm: sinus
*Critical Care Note
Total Time (30-74mins, 75-104mins- exclusive of procedures): Not Applicable
<Brenda Pineda PA-C - Last Filed: 01/19/25 03:34>
Patient Management
Discussion with other providers: Hospitalist
ED Attending Note
<Brenda Pineda PA-C - Last Filed: 01/19/25 03:34>
-
Portions of this chart may have been created with voice recognition software.� Occasional wrong word or��sound alike� substitutions may have occurred due to the inherent limitations of voice recognition software.
<Juan David Lange MD - Last Filed: 01/18/25 21:54>
ED Attending Note
Patient seen and examined by attending physician: Yes
I performed the substantive portion of visit, reviewed & personally made and approve the management plan that is documented in note by myself or TATIANNA.: Yes
ED Attending Note:
Increase shortness of breath over the last week. Increased cough. Low-grade fevers. No chest pain or pleuritic pain. History of interstitial lung disease and left upper lobectomy.
On exam patient is mild to moderately tachypneic and tachypneic with speaking. Room air pulse ox was 88 to 89%.
Decreased breath sounds diffusely with some dry rales in the bases. Heart regular rate and rhythm. Abdomen nontender. Extremities warm and dry.
Impression is respiratory distress interstitial lung disease. Suspect infectious etiology. Workup in progress including chest x-ray labs COVID flu.
X-ray appears to have a left perihilar infiltrate. May also be read is vascular congestion although likely this is all interstitial lung changes. Will add proBNP which is normal. Cardiac testing stable. Cover with antibiotics. Admit for further
care
Discharge Plan
Departure
Patient Disposition: Admit
Date of Disposition: 01/18/25
Time of Disposition: 21:31
Presentation/result/management discussed w/ accepting MD/DO: Hospitalist
Discharge Problem:
Pneumonia, Hypoxia
Interventions
Interventions:
*Risk Screen - Suicide Last Done: 01/19/25 00:40
*General Assessment Last Done: 01/18/25 19:40
*Neglect/Abuse Screening Last Done: 01/19/25 00:40
*ED- Fall Risk Assessment Last Done: 01/18/25 19:40
*ED COVID-19 Vaccine History Last Done: 01/18/25 19:40
*ED Influenza Vaccine History Last Done: 01/18/25 19:40
*Nursing Disposition Last Done: 01/19/25 00:40
ED- Cardiac Assessment Last Done: 01/18/25 19:40
ED- Pulmonary Assessment Last Done: 01/18/25 19:40
Discharge Date and Time
Discharge Date/Time: 01/19/25 00:41
[2025-01-18] MEDS: TYLENOL 650 MG PO (19:28)
[2025-01-18] MEDS: NSS 1000 IV (19:29)
[2025-01-18 19:39] VITALS: BMI 23.1
[2025-01-18] MEDS: DUONEB 3 ML INH (19:47)
[2025-01-18 19:49] VITALS: BP 164/76
[2025-01-18 19:53] LABS: Hematocrit 49.0 % (39.0-52.0); Hemoglobin 15.9 g/dL (13.0-18.0); Mean Corp Hgb Conc. 32.4 g/dL (33.0-37.0); Mean Corpuscular Volume 90.4 fL (80.0-94.0); Nucleated Red Blood Cells % 0 % (-); Platelet Count 117 10^3/uL (130-400); Red Cell Dist. Width 13.7 % (11.5-14.5)
[2025-01-18 19:59] LABS: Blood Urea Nitrogen 16 mg/dl (9-20); Calcium 8.9 mg/dl (8.4-10.2); Carbon Dioxide 26 mmol/L (22-30); Chloride 99 mmol/L (98-107); Estimated Creatinine Clearance 74 ml/min; Glucose 119 mg/dl (70-99); Sodium 134 mmol/L (135-145); eGFR > 60.00
[2025-01-18 20:01] VITALS: BP 149/92
[2025-01-18 20:08] LABS: COVID-19 Antigen Negative (Negative)
--- NOTE | 2025-01-18 21:41 | HPS.HSE ---
Family Physician
-
Family Physician: Juan David Bennett
Chief Complaint
-
Shortness of breath and cough
History of Present Illness
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
2 diabetes, hypothyroid, presented to the emergency department with 1 week of cough and fevers.
He apparently started after visiting granddaughter who vomited on him a few times. He then developed upper respiratory symptoms including productive cough or runny nose as well as intermittent fevers. The cough has been getting worse since. He
reports shaking chills today and started shortness of breath at rest. He denies any rash. He denies any nausea vomiting or abdominal pain. He has no urinary symptoms. He has no other known sick contacts and he denies any recent travel.
He states his cough is worse in the morning with nasal congestion and postnasal drip. However he is otherwise without a productive cough.
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 He also was recently bronchoscope with findings consistent with interstitial lung disease
copious secretions. At 11 is agreeable strep pneumonia as well as Shira. Patient reports being on antibiotics status post procedure for several months and has been doing well since then.
In the emergency department patient had a temp 100.5, blood pressure was 150/90 with a pulse rate of 97 and he was satting 95% on room air. ECG shows a normal sinus rhythm at a rate of 72. X-ray shows interstitial markings that are similar to
prior and could be consistent with interstitial pneumonitis versus atypical pneumonia.
White count is 10.3 with normal hemoglobin and platelets of 117. Lactic acid was 2.2. Electrolytes BUN/creatinine were normal. Influenza test was negative. COVID test was negative.
Medical History
Past Medical History
Past Medical History: Reports CAD, Cancer (CML), Hypercholesterolemia, NIDDM and Other
Additional Past Medical History:
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
Past Surgical History: Reports Other (Left upper lobe lobectomy)
Social History
Tobacco: Former Smoker (Quit over 30 years ago)
Alcohol: None
Personal:
Living: With Family
Family History
Family History: Not pertinent
Allergies / Home Medications
Allergies reflects when Allergies were last updated in [employer]
Home Medications with original date entered in [employer]
Allergy/Medication List:
Allergies
Allergy/AdvReac Type Severity Reaction Status Date / Time
Penicillins Allergy Severe Anaphylaxis Verified 03/03/24 07:57
Home Medications
acetaminophen 325 mg tablet (Tylenol) 650 mg PO DAILYPRN PRN mild pain 01/18/25
albuterol sulfate 90 mcg/actuation aerosol inhaler 2 inh inhalation R BID 01/18/25
levothyroxine 125 mcg tablet (Synthroid) 125 mcg PO DAILY 01/18/25
nilotinib HCl 150 mg capsule (Tasigna) 300 mg PO BID 01/18/25
Review of Systems
-
Constitutional: Reports Fever
EENT: Reports No Symptoms
Respiratory: Reports Cough and Trouble Breathing
Cardiac: Reports No Symptoms
Abdomen/GI: Reports No Symptoms
: Reports No Symptoms
Musculoskeletal: Reports No Symptoms
Skin: Reports No Symptoms
Neurological: Reports No Symptoms
Endocrine: Reports No Symptoms
Hematologic/Lymphatic: Reports No Symptoms
Psych: Reports No Symptoms
Physical Exam
Vital Signs
Vital Signs
Temp Pulse Resp BP Pulse Ox
100.5 F H 97 28 149/92 97
01/18/25 19:50 01/18/25 21:00 01/18/25 21:00 01/18/25 20:01 01/18/25 21:00
Physical Exam
General: Well Developed, Well Nourished and No Apparent Distress
HEENT: NormoCephalic, Moist mucous membranes and Atraumatic
Respiratory: Crackles (Most prominent in the right lower lobe, compared to scattered in other areas of the right lung as well as trace in the left lung. No wheezing noted.)
Cardiac: S1/S2 and Regular Rhythm; No Murmur or Rub
GI: Soft, Non Tender, Non Distended and Normal Bowel Sounds; No Organomegaly
Rectal: Deferred by Provider
Musculoskeletal: No Clubbing, No Cyanosis and No Edema
Skin: No Rash
Neuro: AO x 3 and Nonfocal/grossly intact
Psych: Calm
Laboratory Results
-
01/18/25 19:31
01/18/25 19:31
Laboratory Results
Lactic Acid 2.2 mmol/L (0.7-2.0) H 01/18/25 19:31
Total Bilirubin Cancelled 01/18/25 19:31
AST Cancelled 01/18/25 19:31
ALT Cancelled 01/18/25 19:31
Alkaline Phosphatase Cancelled 01/18/25 19:31
Data Reviewed
-
Diagnostic Radiology: Image Personally Visualized and interpreted
Medical Tests (Nuc Med, Echo, EKG etc): Image Personally Visualized and interpreted
Lab Data: Labs Reviewed by me
Old Records: Reviewed
Impression/Plan
-
IMPRESSION:
69-year-old with history of prior cancer and status post left upper lobectomy for metastatic disease, ILD status post bronchoscopy last year, chronic respiratory symptoms was mostly asymptomatic at baseline presents with approximately 1 week of
worsening cough congestion and now shortness of breath at rest requiring 2 L of oxygen. He has low-grade temps and febrile to 100.5 here in the emergency department. CBC shows a white count of 10.3 lactic acid 2.2 otherwise labs unremarkable.
Chest x-ray is similar to prior without any focal infiltrate and c/w ILD. He has CML so is immunocompromise. He also has a history of interstitial lung disease and bronchiectasis grown Shira as well as strep pneumonia in the past.
PLAN:
Pneumonia - Atypical pneumonia, ? post viral? Patient does meet sepsis criteria. Hypoxic to 2 L NC. H/O ILD.
- admit to med/surg
- bolus 30ml/kg
- blood culture, sputum culture
- mrsa, urine legionella and pneumo antigens
- will continue levofloxacin for now, QTc 413, no h/o pseudomonas
- nebs prn for now, holding off on steroids
- Pulmonary consultation
KARUNA - no longer requiring CPAP after surgery and weight loss
Hypothyroid - post surgical
- continue levothyroxine
CML
- continue home nilotinib
DVT PPX - lovenox sq
Code status - DNR
[2025-01-18] MEDS: LEVAQUIN 150 IV (21:47)
[2025-01-18 21:49] LABS: Troponin I < 0.012 ng/ml
[2025-01-18 22:00] VITALS: BP 104/46
[2025-01-18 22:04] VITALS: BP 107/69
[2025-01-18 23:00] VITALS: BP 102/56
[2025-01-19] VITALS: BP 104/59
[2025-01-19 00:43] VITALS: BP 122/68; BMI 23.1
[2025-01-19] MEDS: NSS 500 IV (01:04)
--- NOTE | 2025-01-19 03:04 | PTCARENOTE ---
Patient received from ED via stretcher on 2L O2 via nasal cannula. Patient was able to ambulate off O2 to bed safely with only mild dyspnea noted. Patient denies any pain or SOB. Outstanding Lactic Acid drawn upon arrival to unit. Bolus given per
order. Will continue to monitor.
[2025-01-19] MEDS: SYNTHROID 125 MCG PO (05:04)
[2025-01-19 07:36] VITALS: BP 105/58
[2025-01-19 08:39] LABS: Hematocrit 38.9 % (39.0-52.0); Hemoglobin 12.7 g/dL (13.0-18.0); Mean Corp Hgb Conc. 32.6 g/dL (33.0-37.0); Mean Corpuscular Volume 90.9 fL (80.0-94.0); Red Cell Dist. Width 13.7 % (11.5-14.5)
--- NOTE | 2025-01-19 09:49 | CON.PUL ---
Consultation
Consultation Request
Date/Time Consultation Requested: 01/19/2025-8 AM
Date/Time Consultation Performed: 01/20/2020 5-8 30
Requesting Provider: Hospitalist
Performing Provider: Dr. Aponte
Reason for Consultation: Pneumonia
Medical History
-
Chief Complaint: Shortness of breath
History of Present Illness:
69-year-old former smoking male with a history of CAD, CML, tonsillar cancer status post resection, left upper lobectomy, chronic sinusitis, KARUNA on CPAP, diabetes, hypothyroid presented with cough, fevers, and noted to have probable
pneumonia-pulmonary consulted for shortness of breath and pneumonia 01/19/2025. The patient states that he has had chest congestion, productive sputum, no hemoptysis, no wheezing, but complain of some dyspnea on exertion and no chest pain,
pleurisy, abdominal pain, nausea, focal weakness.
Past Medical History
Past Medical History: None (CAD. CML. 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 Left upper lobectomy-for metastatic lesion. Interstitial lung disease. Bronchiectasis. Pulmonary nodule. Asbestos exposure. Seasonal
allergies. Chronic sinusitis. Hyperlipidemia. Diabetes. KARUNA on CPAP. Hypothyr)
Past Surgical History: None (Left upper lobectomy. Endoscopic sinus surgery. Bronchoscopy 11/2023. Bone marrow biopsy 2023)
Social History
Tobacco: Former Smoker (Quit over 30 years ago)
Alcohol: None
Drug: None
Personal: (Мария)
Living: With Family
Occupational Exposures: No known asbestos exposure
Environmental Exposures: No known tuberculosis exposure
Family History
Family History: Reviewed & Not Pertinent (Mother from cancer)
Allergies / Home Medications
Allergies
Allergy/AdvReac Type Severity Reaction Status Date / Time
Penicillins Allergy Severe Anaphylaxis Verified 03/03/24 07:57
Home Medications
�Medication �Instructions �Recorded �Confirmed �Last Taken �Type
acetaminophen 325 mg tablet 650 mg PO DAILYPRN PRN mild pain 1001/18/25 01/18/25 History
(Tylenol)
albuterol sulfate 90 mcg/actuation 2 inh inhalation R BID 01/18/25 01/18/25 01/18/25 History
aerosol inhaler Lung/Breathing Issues
levothyroxine 125 mcg tablet 125 mcg PO DAILY Thyroid 01/18/25 01/18/25 01/18/25 History
(Synthroid)
nilotinib HCl 150 mg capsule 300 mg PO BID Antineoplastic Agent 01/18/25 01/18/25 01/18/25 History
(Tasigna)
Review of Systems
-
Unable to Obtain full review of systems at this time due to: Other ( Per HPI)
Vitals / Labs / Diagnostic Testing
Vital Signs
Temp Pulse Resp BP Pulse Ox
98.6 F 72 16 105/58 95
01/19/25 07:36 01/19/25 07:36 01/19/25 07:36 01/19/25 07:36 01/19/25 09:45
Lab Data
01/19/25 07:57
Microbiology
01/18/25 19:31 Nasal Swab Influenza Types A & B (SAMANTHA) - Final
Negative for Influenza A & B, NAAT
Negative results must be combined with clinical observations
and patient history.
Nucleic Acid Amplification test (NAAT)performed on the
[employer] platform.
Diagnostic Testing:
Physical Exam
-
Exam:
Well-nourished and well-developed in no apparent distress
HEENT-atraumatic, normocephalic
Neck-supple, no JVD, no bruit
Heart-regular rate and rhythm-no murmurs, rubs or gallops
Chest with rare crackles and rhonchi without wheezes
Back without tenderness
Abdomen-soft, nontender, nondistended, no hepatosplenomegaly
Extremities-no cyanosis, clubbing, edema and good peripheral pulses
Integument-intact, no rashes, lesions or ecchymosis
Neurology-alert and oriented, nonfocal motor and sensory exam
Assessment
-
69-year-old former smoking male with a history of CAD, CML, tonsillar cancer status post resection, left upper lobectomy, chronic sinusitis, KARUNA on CPAP, diabetes, hypothyroid presented with cough, fevers, and noted to have probable
pneumonia-pulmonary consulted for shortness of breath and pneumonia 01/19/2025.
Community-acquired pneumonia
Mild bjmniu-mxucexjqoy-qejseqtdzp 12.7
Conditions present prior to admission:
CAD.
CML-Dr. Ivey.-On Nilotinib
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
Left upper lobectomy-for metastatic lesion.
Interstitial lung disease.
Bronchiectasis.
Pulmonary nodule.
Bronchoscopy 11/2023-positive for streptococcal pneumonia
Asbestos exposure.
Seasonal allergies.
Aspiration risk
Chronic sinusitis.
Hyperlipidemia.
Diabetes.
KARUNA on CPAP.
Hypothyroid
Left upper lobectomy. Endoscopic sinus surgery. Bronchoscopy 11/2023. Bone marrow biopsy 2023
Plan
Acute decompensation likely related to outpatient respiratory tract infection-bronchitis versus early pneumonia/atypical pneumonia
Supplemental oxygen as needed
Aspiration precautions
Speech therapy evaluation if aspiration is suspected
Mucolytic's
Nebulizers as needed-currently not bronchospastic
Outpatient interstitial lung disease follow-up as outlined below
Check cultures
Sputum culture pending
Empiric antibiotics-levofloxacin initiated-this should cover atypicals as well
Follow hemoglobin
DVT prophylaxis-on Lovenox
Nutrition
Early mobilization
Patient last saw Dr. Elena 07/14/24 and Sadia VALDEZ 10/15/2024-has appointment to see With PFTs on 03/11/25 Ulices
Diagnostic data:
Chest x-ray 01/18/2025-no convincing acute cardiopulmonary process, chronic interstitial/fibrotic changes.
CT chest abdomen pelvis 09/17/2024: Postoperative changes of left upper lobectomy. Bronchiectasis within the medial right upper lobe and bilateral lower lobes.� Extensive posterior predominant groundglass and reticular opacities.� Stable appearance
of subcentimeter paratracheal and subcarinal lymph nodes.
PET scan 06/15/24 ([facility]): reviewed on CD. FDG activity left pectoralis muscle suggesting likely muscle tension.� Mild increased activity bilateral posterior lobe, slightly increased left superior segment.� Report suggests inflammatory/infectious
process.� Per my review, left lower lobe process is improved compared to prior images.� There is mild interstitial changes right greater than left
VSE 11/25/23: Upper penetration with liquid barium, nectar consistency, honey consistency, solid barium without marce aspiration.
PFT 02/10/24: FVC 2.29/58%, FEV1 2.0/72%, ratio 91.� TLC 3.29/50%, DLCO 10.6/44%.� Moderate restriction with severe gas exchange defect.� This is stable, TLC is trending towards improvementSpiro 11/28/23: FVC 2.36/60%, FEV1 2.01/69%, ratio 8
House 10/15/2024: FVC 1.93/57%, FEV1 1.88/73%, ratio 97%, TLC 4.8/74%. Mild restriction.
6MWT 07/14/24: total distance 1050 feet, desaturation angélica 90%, heart rate 81, dyspnea scale 1/10.� Resting saturation for ambulation 93%
Echo 03/02/24: Normal biventricular function, mild aortic regurgitation, small PFO, right heart pressures could not be determined.
03/03/24: Bone marrow biopsy hypercellular bone marrow, consistent with CML BCR/ABL1, [place] chromosome /13/24: serum bicarbonate 28, normal calcium, creatinine, liver function
Bronchoscopy 11/13/23: 47,300 white cells, 81% neutrophils.� Left upper lobe and right lower lobe BAL positive Streptococcus pneumonia, right lower lobe BAL positive Shira.� AFB and fungal negative to date.� No evidence of malignancy right lower
lobe, left upper lobe, there is evidence of acute inflammatory cells since
Data Reviewed
-
PFT: Report reviewed by me
EKG: Report reviewed by me
Radiology: Image personally visualized and interpreted and Report reviewed by me
CT Scan: Image personally visualized and interpreted and Report reviewed by me
Labs: Labs reviewed by me
Old Records: Reviewed
Total Time Spent with Patient (in minutes): 65
--- NOTE | 2025-01-19 09:49 | CON.ID ---
Consultation
-
Date/Time Consultation Requested: 01/19/25 9;02
Date/Time Consultation Performed: 01/19/25 9:50
Requesting Provider: Dr Adrian Albright
Performing Provider: Dr Banda
Reason for Consultation: shortness of breath and cough
Chief Complaint / Past History
Chief Complaint
shortness of breath and cough
History of Present Illness
Mr Alexandre is a 69 year old male with history of tonsillar cancer s/p resection of the tonsils and base of tongue, OSMAN lobectomy. He presented here for 1 week of cough and fevers. Reportedly patient visited granddaughter who vomited on him several
times. He later developed cough, runny nose and fevers. The cough has been progressive and he began to develop shaking chills and dyspnea at rest. No nausea, vomiting, abdominal pain, rash or dysuria.
In the ER he had fever to 100.5, bp stable, wbc 10.3 today 8.7, hgb 12.7, plt 117, no left shift, na 134, cr 0.9, lactic acid initially 2.2 then 1.1, CXR: no acute CP process, chronic interstitial changes is noted, he was previously colonized with
strep pneumo 11/30. Blood culturs x2 in progress, influenza negative. Patient is currently on levofloxacin, reports anaphylaxis to penicillin.
Past History
Additional Past Medical History:
CAD, Cancer (CML), Hypercholesterolemia, NIDDM and Other
Additional Past Surgical History:
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
Allergy History:
Penicillins Allergy (Severe, Verified 03/03/24 07:57)
Anaphylaxis
Medications Reviewed: Yes
Social History
Tobacco: Former Smoker
Alcohol: None
Personal:
Family History
Family History: Not Pertinent
Review of Systems
Review of Systems
Constitutional: Reports Fever
EENT: Reports No Symptoms
Respiratory: Reports Cough and Trouble Breathing
Cardiac: Reports No Symptoms
Abdomen/GI: Reports No Symptoms
: Reports No Symptoms
Musculoskeletal: Reports No Symptoms
Skin: Reports No Symptoms
Neurological: Reports No Symptoms
Endocrine: Reports No Symptoms
Hematologic/Lymphatic: Reports No Symptoms
Psych: Reports No Symptoms
Vital Signs
Temp Pulse Resp BP Pulse Ox
98.6 F 72 16 105/58 95
01/19/25 07:36 01/19/25 07:36 01/19/25 07:36 01/19/25 07:36 01/19/25 09:45
Physical Exam
Physical Exam
Constitutional: No Acute Distress
Cardiovascular: Regular Rate and S1/S2; Negative Murmur or Rub
Pulmonary: Clear and Symmetric; Negative Wheezes, Rales or Rhonchi
Gastrointestinal: Soft, Non Tender, Non Distended and Normal Bowel Sounds
Skin: Warm and Dry; Negative Rash or Jaundice
Lab / Diagnostic Study Results
01/19/25 07:57
Abs Immat Gran (auto) 0.0 10^3/uL (0-0.05) 01/18/25 19:31
Absolute Neuts (auto) 6.6 10^3/uL (1.4-6.5) H 01/18/25 19:31
Absolute Lymphs (auto) 2.6 10^3/uL (1.2-3.4) 01/18/25 19:31
Absolute Monos (auto) 1.0 10^3/uL (0.1-0.6) H 01/18/25 19:31
Absolute Basos (auto) 0.0 10^3/uL (0-0.2) 01/18/25 19:31
Immature Gran % 0.3 % (0-0.5) 01/18/25 19:31
Neutrophils % 63.8 % (42.2-75.2) 01/18/25 19:31
Lymphocytes % 25.4 % (20.5-51.1) 01/18/25 19:31
Monocytes % 9.5 % (1.7-9.3) H 01/18/25
Eosinophils % 0.8 % (0-6) 01/18/25 19:
Basophils % 0.2 % (0-2) 01/18/25 19:
Lactic Acid 1.1 mmol/L (0.7-2.0) 01/19/25 01:01
Microbiology Results
Micro:
01/18/25 19: Influenza Types A & B (SAMANTHA) - Final
Nasal Swab Negative for Influenza A & B, NAAT
Negative results must be combined with clinical observations
and patient history.
Nucleic Acid Amplification test (NAAT)performed on the
[employer] platform.
01/18/25 19: Blood Culture - Pending
Blood/Venous
01/18/25 19: Blood Culture - Pending
Blood/Venous
Assessment / Plan
Possible developing pneumonia/atypical pneumonia
Anaphylaxis to penicillin
- continue levofloxacin can transition to pills, plan short course of therapy
- a procalcitonin is pending
- CXR without convincing infiltrates, however with increased interstitial markings
- sputum culture if able to produce one
- legionella and s pneumo urine antigens are ordered
[2025-01-19 10:06] LABS: Blood Urea Nitrogen 13 mg/dl (9-20); Calcium 7.9 mg/dl (8.4-10.2); Carbon Dioxide 27 mmol/L (22-30); Chloride 104 mmol/L (98-107); Estimated Creatinine Clearance 83 ml/min; Glucose 102 mg/dl (70-99); Potassium 4.4 mmol/L (3.5-5.1); Sodium 134 mmol/L (135-145); eGFR > 60.00
[2025-01-19 10:20] VITALS: BP 102/56; PULSE 76; O2SAT 94
--- NOTE | 2025-01-19 10:25 | PTOTSP ---
The patient is independent with ambulation and elevations, no strength or balance deficits noted. No PT needs identified at this time, will sign off.
[2025-01-19 10:26] LABS: Procalcitonin 0.36 ng/ml (0.0-0.25)
[2025-01-19] MEDS: LEVAQUIN 750 MG PO (10:27)
[2025-01-19 10:36] LABS: Platelet Count 85 10^3/uL (130-400)
[2025-01-19] MEDS: ROBITUSSIN 200 MG PO ×2 (12:05→17:22)
--- NOTE | 2025-01-19 12:45 | W.PN.HOSP.TC ---
Today's Communication/Plan
-
Assessment / Plan
Assessment / Plan
NAD
Scleral Anicteric
MMM
No JVD
Dry crackles
RRR, S1/S2
Soft, NT, ND, BS+
Warm, Dry
AAOx3
Calm
Suspect hospice viral pneumonia however superimposed bacterial
Continue giving levofloxacin to total 5 days
Follow-up on sputum culture
Follow-up on procalcitonin, discussed with family if left may consider discontinuing IV antibiotics
Follow-up on Legionella strep pneumo antigen
ID and pulmonary both consulted
Continue mucolytics
Incentive spirometer and Acapella
KARUNA
No longer requiring CPAP
Hypothyroidism
Postsurgical
Continue levothyroxine
CML
Continue home nilotinib
DNR
Anticipated Discharge: 24 - 48 hours
Subjective/Interval History
-
Date of Service: January 19, 2025
Seen and examined. No new complaints. No acute overnight events.
Objective Data
-
Labs:
Laboratory Results
01/19/25
07:57
WBC 8.7
Hgb 12.7 L D
Hct 38.9 L
Plt Count 85 L D
Sodium 134 L
Potassium 4.4
Chloride 104
Carbon Dioxide 27
BUN 13
Creatinine 0.8
Glucose 102 H
Calcium 7.9 L
Vital Signs:
Vital Signs
Temp Pulse Resp BP Pulse Ox
98.6 F 72 16 105/58 95
01/19/25 07:36 01/19/25 07:36 01/19/25 07:36 01/19/25 07:36 01/19/25 09:45
Data Reviewed
-
CT Scan: Image personally visualized and interpreted
--- NOTE | 2025-01-19 15:51 | CM ---
CM met with Juan David who was admitted with pneumonia and hypoxia. He states that he is independent at home and his . They live together in a 2 story home with a first floor set up where he has an adjustable bed and a lazy boy chair. No DME in the
home and no history of home care.
Plan: CM to follow to coordinate all discharge planning needs. Watch for home O2 needs.
[2025-01-19 15:53] VITALS: BP 101/54
[2025-01-19] MEDS: LOVENOX 40 MG SC (17:22)
[2025-01-19] MEDS: NON-FORMULARY ITEM 300 MG PO (20:10)
[2025-01-19] MEDS: ROBITUSSIN PO (22:44)
[2025-01-19 23:03] VITALS: BP 107/58
[2025-01-20] MEDS: SYNTHROID 125 MCG PO (06:02)
[2025-01-20 07:00] VITALS: BP 100/57
[2025-01-20] MEDS: NON-FORMULARY ITEM 300 MG PO (09:14)
[2025-01-20] MEDS: ROBITUSSIN 200 MG PO ×2 (09:14→12:43)
[2025-01-20] MEDS: LEVAQUIN 750 MG PO (09:14)
--- NOTE | 2025-01-20 09:47 | W.PN.PUL.V3 ---
Today's Communication / Plan
-
Feels much improved
Finite course of antibiotics
Increase activity
Wean oxygen
Potential discharge with outpatient pulmonary follow-up
Assessment
-
69-year-old former smoking male with a history of CAD, CML, tonsillar cancer status post resection, left upper lobectomy, chronic sinusitis, KARUNA on CPAP, diabetes, hypothyroid presented with cough, fevers, and noted to have probable
pneumonia-pulmonary consulted for shortness of breath and pneumonia 01/19/2025.
Community-acquired pneumonia
Mild upmfrd-xhmwepiurp-anczslnnrb 12.7
Conditions present prior to admission:
CAD.
CML-Dr. Ivey.-On Nilotinib
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
Left upper lobectomy-for metastatic lesion.
Interstitial lung disease.
Bronchiectasis.
Pulmonary nodule.
Bronchoscopy 11/2023-positive for streptococcal pneumonia
Asbestos exposure.
Seasonal allergies.
Aspiration risk
Chronic sinusitis.
Hyperlipidemia.
Diabetes.
KARUNA on CPAP.
Hypothyroid
Left upper lobectomy. Endoscopic sinus surgery. Bronchoscopy 11/2023. Bone marrow biopsy 2023
Plan
Acute decompensation likely related to outpatient respiratory tract infection-bronchitis versus early pneumonia/atypical pneumonia
Supplemental oxygen as needed-currently 95% on room air
Aspiration precautions
Speech therapy evaluation if aspiration is suspected
Mucolytic's
Nebulizers as needed-currently not bronchospastic
Outpatient interstitial lung disease follow-up as outlined below
Cultures reviewed
Urine Legionella and streptococcal antigens negative
Influenza negative
Sputum culture pending
Empiric antibiotics-levofloxacin initiated-this should cover atypicals as well-finite course-5-7 days
Follow hemoglobin
DVT prophylaxis-on Lovenox
Nutrition
Early mobilization
Patient last saw Dr. Elena 07/14/24 and Sadia VALDEZ 10/15/2024-has appointment to see With PFTs on 03/11/25 [place]
Diagnostic data:
Chest x-ray 01/18/2025-no convincing acute cardiopulmonary process, chronic interstitial/fibrotic changes.
CT chest abdomen pelvis 09/17/2024: Postoperative changes of left upper lobectomy. Bronchiectasis within the medial right upper lobe and bilateral lower lobes.� Extensive posterior predominant groundglass and reticular opacities.� Stable appearance
of subcentimeter paratracheal and subcarinal lymph nodes.
PET scan 06/15/24 ([facility]): reviewed on CD. FDG activity left pectoralis muscle suggesting likely muscle tension.� Mild increased activity bilateral posterior lobe, slightly increased left superior segment.� Report suggests inflammatory/infectious
process.� Per my review, left lower lobe process is improved compared to prior images.� There is mild interstitial changes right greater than left
VSE 11/25/23: Upper penetration with liquid barium, nectar consistency, honey consistency, solid barium without marce aspiration.
PFT 02/10/24: FVC 2.29/58%, FEV1 2.0/72%, ratio 91.� TLC 3.29/50%, DLCO 10.6/44%.� Moderate restriction with severe gas exchange defect.� This is stable, TLC is trending towards improvementSpiro 11/28/23: FVC 2.36/60%, FEV1 2.01/69%, ratio 8
Jd 10/15/2024: FVC 1.93/57%, FEV1 1.88/73%, ratio 97%, TLC 4.8/74%. Mild restriction.
6MWT 07/14/24: total distance 1050 feet, desaturation angélica 90%, heart rate 81, dyspnea scale 1/10.� Resting saturation for ambulation 93%
Echo 03/02/24: Normal biventricular function, mild aortic regurgitation, small PFO, right heart pressures could not be determined.
03/03/24: Bone marrow biopsy hypercellular bone marrow, consistent with CML BCR/ABL1, [place] chromosome glndjxoh64/13/24: serum bicarbonate 28, normal calcium, creatinine, liver function
Bronchoscopy 11/13/23: 47,300 white cells, 81% neutrophils.� Left upper lobe and right lower lobe BAL positive Streptococcus pneumonia, right lower lobe BAL positive Shira.� AFB and fungal negative to date.� No evidence of malignancy right lower
lobe, left upper lobe, there is evidence of acute inflammatory cells since
Subjective Data
-
Date of Service:
Date of Service: January 20, 2025
Chief Complaint: Pulmonary Follow Up and Dyspnea Follow Up
Subjective:
Feels better, less short of breath, some chest congestion, minimal cough, no chest pain or abdominal pain
Review of Systems
General: Other (Per HPI)
Objective Data
Data Reviewed
Vital Signs / I&O:
Vital Signs
Temp Pulse Resp BP Pulse Ox
98.5 F 64 18 100/57 97
01/20/25 07:00 01/20/25 07:00 01/20/25 07:00 01/20/25 07:00 01/20/25 07:00
Intake and Output
01/19/25 01/20/25 01/21/25
06:59 06:59 06:59
Intake Total 600 / 600
Balance 600 / 600
SaO2: 97
Nasal Cannula flow liters per minute: 1
Physical Exam
General: Respiratory Distress (n) and Comfortable
HEENT: Normocephalic, Anicteric and Moist Mucous Membranes
Cardiovascular: Regular Rhythm
Respiratory: Wheeze (n), Crackles (Bilateral bases), Rhonchi (n), Non-Labored Respirations, Accessory Resp Muscle Use (n) and Stridor (n)
GI: Soft, Non Distended and Non Tender
Neurology: Awake, Alert and No Motor Deficits
Skin: Warm, Good Color, Cyanosis (n), Jaundice (n) and Rash (n)
Labs/Micro/Reports
Lab Data
01/19/25 07:57
01/19/25 07:57
Microbiology
01/18/25 19:31 Blood/Venous Blood Culture - Preliminary
No Growth in 24 hours- Final report to follow
01/18/25 19:31 Blood/Venous Blood Culture - Preliminary
No Growth in 24 hours- Final report to follow
01/19/25 11:19 Urine Legionella Urinary Antigen - Final
Negative for Legionella pneumophila Serogroup 1 antigen.
A negative result does not rule out the possiblity of
Legionella infection due to other serogroups or species of
Legionella. Clinical correlation is recommended.
01/19/25 11:19 Urine Streptococcus pneumoniae Antigen (M - Final
Negative for Streptococcus pneumoniae antigen.
A negative result does not exclude infection with
Streptococcus pneumoniae. Clinical correlation is
recommended.
01/18/25 19:31 Nasal Swab Influenza Types A & B (SAMANTHA) - Final
Negative for Influenza A & B, NAAT
Negative results must be combined with clinical observations
and patient history.
Nucleic Acid Amplification test (NAAT)performed on the
[employer] platform.
--- NOTE | 2025-01-20 13:08 | W.PN.HOSP.TC ---
Today's Communication/Plan
-
Assessment / Plan
Assessment / Plan
NAD
Scleral Anicteric
MMM
No JVD
Dry crackles
RRR, S1/S2
Soft, NT, ND, BS+
Warm, Dry
AAOx3
Calm
Suspect viral pneumonia however superimposed bacterial
Continue giving levofloxacin to total 5 days
Follow-up on sputum culture
Follow-up on procalcitonin, discussed with family if left may consider discontinuing IV antibiotics
Follow-up on Legionella strep pneumo antigen
ID and pulmonary both consulted
Continue mucolytics
Incentive spirometer and Acapella
KARUNA
No longer requiring CPAP
Hypothyroidism
Postsurgical
Continue levothyroxine
CML
Continue home nilotinib
DNR
Anticipated Discharge: Within 24 hours
Subjective/Interval History
-
Date of Service: January 20, 2025
Seen and examined no new complaints. No acute overnight events
Objective Data
-
Vital Signs:
Vital Signs
Temp Pulse Resp BP Pulse Ox
98.5 F 64 18 100/57 95
01/20/25 07:00 01/20/25 07:00 01/20/25 07:00 01/20/25 07:00 01/20/25 10:30
I&O
01/19/25 01/20/25 01/21/25
06:59 06:59 06:59
Intake Total 600 / 600
Balance 600 / 600
--- NOTE | 2025-01-20 13:27 | W.PN.ID1 ---
Date of Service
Date of Service: January 20, 2025
Today's Communication
5 day course of levofloxacin
stable for dc
Assessment / Plan
Possible developing pneumonia/atypical pneumonia
Anaphylaxis to penicillin
- continue levofloxacin for a 5 day course
- a procalcitonin was mildly elevated
- CXR without convincing infiltrates, however with increased interstitial markings
- sputum culture if able to produce one - none thus far
- legionella and s pneumo urine antigens negative
- stable for dc from ID perspective
Chief Complaint
-: Other (pneumonia)
Subjective / Review of Systems
afebrile
bp stable
Vital Signs / Physical Exam
Vital Signs
Vital Signs
Temp Pulse Resp BP Pulse Ox
98.5 F 64 18 100/57 95
01/20/25 07:00 01/20/25 07:00 01/20/25 07:00 01/20/25 07:00 01/20/25 10:30
Physical Exam
Constitutional: No Acute Distress
Cardiovascular: Regular Rate and S1/S2; Negative Murmur or Rub
Pulmonary: Clear and Symmetric; Negative Wheezes or Rales
Gastrointestinal: Soft, Non Tender, Non Distended and Normal Bowel Sounds
Skin: Warm and Dry; Negative Rash or Jaundice
Objective Data
Lab Data
Lab Results
01/19/25 07:57
01/19/25 07:57
Estimated Creat Clear 83 ml/min 01/19/25 07:57
Lactic Acid 1.1 mmol/L (0.7-2.0) 01/19/25 01:01
Total Bilirubin Cancelled 01/18/25 19:31
AST Cancelled 01/18/25 19:31
ALT Cancelled 01/18/25 19:31
Alkaline Phosphatase Cancelled 01/18/25 19:31
Most recent labs reviewed.
Micro Results:
01/18/25 19:31 Blood Culture - Preliminary
Blood/Venous No Growth in 24 hours- Final report to follow
01/18/25 19:31 Blood Culture - Preliminary
Blood/Venous No Growth in 24 hours- Final report to follow
01/19/25 11:19 Legionella Urinary Antigen - Final
Urine Negative for Legionella pneumophila Serogroup 1 antigen.
A negative result does not rule out the possiblity of
Legionella infection due to other serogroups or species of
Legionella. Clinical correlation is recommended.
Streptococcus pneumoniae Antigen (M - Final
Negative for Streptococcus pneumoniae antigen.
A negative result does not exclude infection with
Streptococcus pneumoniae. Clinical correlation is
recommended.
01/18/25 19:31 Influenza Types A & B (SAMANTHA) - Final
Nasal Swab Negative for Influenza A & B, NAAT
Negative results must be combined with clinical observations
and patient history.
Nucleic Acid Amplification test (NAAT)performed on the
[employer] platform.
--- NOTE | 2025-01-20 14:11 | W.DCSUMMARY ---
Discharge Summary
Discharge Data
Date of Admission: 01/18/25
Date of Discharge: 01/20/25
-
Pending Results: No
Hospital Course
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
diabetes, hypothyroid
Presented with 1 week history of cough and fevers. Concern for pneumonia as there was interstitial markings on chest x-ray which could be consistent with interstitial pneumonitis versus atypical pneumonia. Therefore was admitted and treated with
IV antibiotics. Seen by pulmonary and by infectious diseases. Cleared for discharge home on levofloxacin 750 mg for 5 days.
More than 30 minutes spent in discharge including
Final examination of the patient
Summarizing hospital stay
Instructions for continuing care to all relevant caregivers
Preparation of discharge records, prescriptions, and referral forms
Total time spent (in minutes): 33mins
Discharge Plan
-
Patient Disposition: Home (Routine Discharge)
Discharge Diagnosis/Procedures: Pneumonia
Condition: Fair
Diet: As tolerated
Activity: As tolerated
Activity Restrictions/Additional Instructions:
Presented with 1 week history of cough and fevers. Concern for pneumonia as there was interstitial markings on chest x-ray which could be consistent with interstitial pneumonitis versus atypical pneumonia. Therefore was admitted and treated with
IV antibiotics. Seen by pulmonary and by infectious diseases. Cleared for discharge home on levofloxacin 750 mg for 5 days.
Referrals:
Demi Elena MD [Active, Pulmonary Medicine] - in one to two weeks
Referral Note: or CREDIT ASSESSMENT ANALYST - follow up pneumonia
Juan David Bennett DO [Family Provider, Family Practice]
Prescriptions:
New
guaifenesin 100 mg/5 mL Liquid
200 mg PO QID 5 Days Qty: 200 0RF
levofloxacin 750 mg Tablet
750 mg PO DAILY 5 Days Qty: 5 0RF
Continued
acetaminophen [Tylenol] 325 mg Tablet
650 mg PO DAILYPRN PRN (Reason: mild pain)
levothyroxine [Synthroid] 125 mcg Tablet
125 mcg PO DAILY
albuterol sulfate 90 mcg/actuation Hfa Aerosol Inhaler
2 inh INHALATION R BID
nilotinib HCl [Tasigna] 150 mg Capsule
300 mg PO BID
Discharge Orders:
Discharge Patient (As Directed); Ordered 01/20/25
Ordered By: Blair Albright
Discharge Date and Time
Print Language: SYRIAC
[2025-01-20 15:00] VITALS: BP 109/64
--- NOTE | 2025-01-20 15:10 | PTCARENOTE ---
22 pills od home medication prietobryan returned to pt.
== END 2025-01-20 15:51 | disposition home or self-care (01) | DRG 195 ==
LOC: 3 WEST ACU 22:33
PROVIDERS: Physician Assistant; ADMITTING PHYSICIAN Internal Medicine; ATTENDING PHYSICIAN Hospitalist; EMERGENCY PHYSICIAN Emergency Medicine; FAMILY PHYSICIAN Family Medicine; OTHER PHYSICIAN Internal Medicine Critical Care Medicine; OTHER PHYSICIAN Student in an Organized Health Care Education/Training Program
DX: J18.9 Pneumonia, unspecified organism (principal); Z85.818 Personal history of malignant neoplasm of other sites of lip, oral cavity, and pharynx; G47.33 Obstructive sleep apnea (adult) (pediatric); J32.9 Chronic sinusitis, unspecified; E03.9 Hypothyroidism, unspecified; E11.9 Type 2 diabetes mellitus without complications; Z88.0 Allergy status to penicillin; Z87.892 Personal history of anaphylaxis; Z11.52 Encounter for screening for COVID-19; Z87.891 Personal history of nicotine dependence; Z90.2 Acquired absence of lung [part of]; Z87.01 Personal history of pneumonia (recurrent); Z85.6 Personal history of leukemia; Z77.090 Contact with and (suspected) exposure to asbestos; Z79.890 Hormone replacement therapy; Z85.118 Personal history of other malignant neoplasm of bronchus and lung; Z66 Do not resuscitate; D64.9 Anemia, unspecified; E78.00 Pure hypercholesterolemia, unspecified; I25.10 Atherosclerotic heart disease of native coronary artery without angina pectoris; R09.02 Hypoxemia
CPT/HCPCS: 71045; 80048; 83605; 83880; 84145; 84484; 85025; 85027; 87040; 87449; 87502; 87811; 87899; 93005; 94640; 96365; 96366; 97161; 99285